=== PATIENT | female | born 1955 | race Two or more races ===

== ENCOUNTER 2021-08-25 18:09 | Emergency (ER) | payer MEDICAID ==
[~2021-08-25] VITALS: Ht 165.1 cm; Wt 83.5 kg
--- NOTE | 2021-08-25 18:32 | NUR ---
Dr Kincaid at bedside for MSE.
[2021-08-25] MEDS ORDERED: ACET-2154 PO (18:45)
[2021-08-25] MEDS ORDERED: LISI10TA29 PO (18:45)
[2021-08-25] MEDS ORDERED: HYDROMORPHONE 1 MG/1 ML DISP.SYRIN IV ONE (18:45)
[2021-08-25] MEDS ORDERED: NA P133E RC (18:45)
[2021-08-25] MEDS ORDERED: ONDANSETRON 4 MG/2 ML VIAL IV ONE (18:45)
[2021-08-25] MEDS ORDERED: MAGN400O6 PO (18:45)
[2021-08-25] MEDS ORDERED: RALT400T PO (18:45)
[2021-08-25] MEDS ORDERED: LIDOCAINE PATCH (18:45)
[2021-08-25] MEDS ORDERED: CALC-343 PO (18:45)
[2021-08-25] MEDS ORDERED: CALC-953 PO (18:45)
[2021-08-25] MEDS ORDERED: FERR325T23 PO (18:45)
[2021-08-25] MEDS ORDERED: BISA10SU61 RC (18:45)
[2021-08-25] MEDS ORDERED: FOLI1TAB94 PO (18:45)
[2021-08-25] MEDS ORDERED: CYAN-51 PO (18:45)
[2021-08-25] MEDS ORDERED: LEVE500T9 PO (18:45)
[2021-08-25] MEDS ORDERED: HYDR-4209 PO ×2 (18:46→20:46)
[2021-08-25] MEDS ORDERED: NIFE-35 PO (18:46)
[2021-08-25] MEDS ORDERED: MULT-594 PO (18:46)
[2021-08-25] MEDS ORDERED: EMTR1TAB6 PO (18:46)
[2021-08-25] MEDS ORDERED: ASCO500C18 PO (18:46)
[2021-08-25] MEDS ORDERED: ONDANSETRON 4 MG/2 ML VIAL ONE (18:58)
[2021-08-25] MEDS ORDERED: HYDROMORPHONE 1 MG/1 ML DISP.SYRIN ONE (18:59)
[2021-08-25 19:13] LABS: HEMATOCRIT 31.5 % (31.2-41.9); MEAN CORPUSCULAR VOLUME 88.7 fL (75.5-95.3); PLATELET COUNT (AUTO) 235 K/uL (179-408)
[2021-08-25 19:23] LABS: ALANINE AMINOTRANSFERASE 17 U/L (14-59); ALKALINE PHOSPHATASE 85 U/L (50-136); ASPARTATE AMINOTRANSFERASE 13 U/L (15-37); BILIRUBIN,TOTAL 0.1 mg/dL (0.2-1.0); CARBON DIOXIDE 24 mmol/L (21-32); CHLORIDE 110 mmol/L (98-107); GLUCOSE 132 mg/dL (74-106); POTASSIUM 3.7 mmol/L (3.5-5.1); TOTAL PROTEIN, SERUM 7.2 g/dL (6.4-8.2); UREA NITROGEN, BLOOD 27 mg/dL (7-18)
[2021-08-25 19:24] LABS: BILIRUBIN,DIRECT < 0.1 mg/dL (0.0-0.2)
--- NOTE | 2021-08-25 20:59 | NUR ---
Called [facility] for BLS transport back to [facility], eta 2-2.5 hours~2300.
--- NOTE | 2021-08-25 21:45 | NUR ---
IV removed. Catheter intact and site benign. Pressure and 4x4 gauze applied to site. No bleeding noted.
--- NOTE | 2021-08-25 21:50 | NUR ---
Spoke with Nurse Marge from [facility] accpeted pt back. [phone]
[2021-08-25 21:55] VITALS: BP 123/97
--- NOTE | 2021-08-25 21:55 | NUR ---
Report given to emt, ambulance 310. Pt not in distress.
--- NOTE | 2021-08-25 22:04 | NUR ---
Patient discharged [facility] in stable condition. Written and verbal after care instructions given. Patient verbalizes understanding of instructions. Stressed follow up or return to ER for worsening s/s. Pt out of ER by [facility].
== END 2021-08-25 22:07 ==
LOC: ER 18:09
DX: M54.5 Low back pain (principal); M48.54XA Collapsed vertebra, not elsewhere classified, thoracic region, initial encounter for fracture; M85.88 Other specified disorders of bone density and structure, other site; G40.909 Epilepsy, unspecified, not intractable, without status epilepticus; Z20.822 Contact with and (suspected) exposure to COVID-19; Z91.81 History of falling; M48.061 Spinal stenosis, lumbar region without neurogenic claudication; M47.816 Spondylosis without myelopathy or radiculopathy, lumbar region
CPT/HCPCS: 36415; 72131; 80048; 80076; 85025; 85730; 87426; 96374; 96375; 99284; J1170; J2405; A4663